=== PATIENT | male | born 1955 | race African-American/Black ===

== ENCOUNTER 2020-11-30 17:17 | Emergency (ER) | payer OTHER ==
[2020-11-30 17:43] VITALS: TEMP 98.2; BMI 18.7
[2020-11-30] MEDS ORDERED: ACETAMINOPHEN 500 MG TABLET (FP) PO ONE (19:29)
[2020-11-30] MEDS ORDERED: LIDOCAINE 5% TOPICAL PATCH TP ONE (19:42)
[2020-11-30] MEDS ORDERED: LIDOCAINE 5% TOPICAL PATCH ONE (20:13)
[2020-11-30] MEDS ORDERED: VALSARTAN 40 MG TABLET PO ONE (20:14)
[2020-11-30] MEDS ORDERED: VALSARTAN 80 MG TABLET ONE (20:14)
[2020-11-30 20:19] VITALS: BP 161/91; PULSE 82
[2020-11-30] MEDS ORDERED: LIDOCAINE PATCH REMOVAL MC SCH (22:00)
== END 2020-11-30 20:25 | disposition home or self-care (01) ==
LOC: JER 17:17
DX: M54.50 Low back pain, unspecified (principal); M25.551 Pain in right hip; I10 Essential (primary) hypertension
CPT/HCPCS: 73523-TC-FY; 99284-25